=== PATIENT | male | born 1980 | race Caucasian/White ===

== ENCOUNTER 2022-09-05 13:38 | Emergency (ER) | payer MEDICAID, SELFPAY ==
[2022-09-05 14:01] VITALS: BP 137/87; PULSE 113; RESP 18; TEMP 36.8; O2SAT 98
--- NOTE | 2022-09-05 15:01 | ED.GENADULT ---
HPI - General Adult General Chief complaint: Skin/Abscess/Foreign Body Stated complaint: been in heat, rash on left arm Time Seen by Provider: 09/05/22 14:31 History of Present Illness HPI narrative: 42-year-old male presented emergency department for evaluation of a rash. Patient suspects it is poison carline. Rash is located on upper arms and torso. Patient states he did sleep in a field a few nights ago. Patient reports he has showered and washed his close since then. Patient denies any chest pain shortness of breath difficulty breathing or swallowing. Related Data Allergies Allergy/AdvReac Type Severity Reaction Status Date / Time No Known Allergies Allergy Verified 09/05/22 15:11 Review of Systems Review of Systems: All systems reviewed & are unremarkable except as noted in HPI and below Exam Narrative: APPEARANCE: Well appearing, no pain, no distress, well-nourished. HEAD: normocephalic, atraumatic. EYES: PERRLA/EOMI, conjunctivae clear. NOSE: Normal no drainage NECK: Supple. No adenopathy, no masses. RESPIRATORY: Airway patent, respirations nonlabored. Clear to auscultation bilaterally, no rales, rhonchi, wheezing. CARDIOVASCULAR: Regular rate and rhythm without murmurs rubs or gallops. ABDOMINAL: Soft, nontender, nondistended, normal bowel sounds MUSCULOSKELETAL: Moves all extremities. Strength/ROM intact, No edema, No calf tenderness. NEURO: Alert. Cranial nerves II through XII intact. Grossly intact SKIN: Rash consistent with poison carline Course Course Emergency Course: 42-year-old male with rash consistent with poison carline dermatitis. Patient was treated with IM Kenalog. Patient was encouraged of close follow-up with his primary care physician for wound check. All questions and concerns were addressed. Patient was well-appearing at time of discharge Vital Signs Vital signs: Vital Signs Temperature 98.2 F 09/05/22 14:01 Pulse Rate 113 H 09/05/22 14:01 Respiratory Rate 18 09/05/22 14:01 Blood Pressure 137/87 09/05/22 14:01 Pulse Oximetry 98 09/05/22 14:01 Oxygen Delivery Room Air 09/05/22 14:01 Temperature 98.2 F 09/05/22 14:01 Pulse Rate 113 H 09/05/22 14:01 Respiratory Rate 18 09/05/22 14:01 Blood Pressure 137/87 09/05/22 14:01 Pulse Oximetry 98 09/05/22 14:01 Oxygen Delivery Room Air 09/05/22 14:01 Medical Decision Making Differential Diagnosis Differential Diagnosis: Poison carline, poison sumac Vital Signs Vital Signs: Vital Signs Temperature 98.2 F 09/05/22 14:01 Pulse Rate 113 H 09/05/22 14:01 Respiratory Rate 18 09/05/22 14:01 Blood Pressure 137/87 09/05/22 14:01 Pulse Oximetry 98 09/05/22 14:01 Oxygen Delivery Room Air 09/05/22 14:01 Temperature 98.2 F 09/05/22 14:01 Pulse Rate 113 H 09/05/22 14:01 Respiratory Rate 18 09/05/22 14:01 Blood Pressure 137/87 09/05/22 14:01 Pulse Oximetry 98 09/05/22 14:01 Oxygen Delivery Room Air 09/05/22 14:01 Discharge Plan Discharge Clinical Impression: Poison carline dermatitis Patient Disposition: Home, Self-Care Condition: Stable Instructions: Antibiotic Form, Poison Carline (ED) Additional Instructions: Have close follow-up with your primary care physician. Follow-up/Referrals: PHYSICIAN NOT ON STAFF,NONSTAFF [Primary Care Provider] -
[2022-09-05] MEDS: TRIAMCINOLONE ACET INJ 40 MG/ML VIAL 100 MG IM (15:12)
== END 2022-09-05 15:16 | disposition home or self-care (01) ==
PROVIDERS: Emergency Provider Emergency Medicine
DX: L23.7 Allergic contact dermatitis due to plants, except food (principal)
CPT/HCPCS: 96372; 99283; J3301